=== PATIENT | female | born 1980 | race Hispanic/Latino ===

== ENCOUNTER → 2019-06-05 | Outpatient (REF) | payer OTHER | LOC: M LAB REF 14:46 | PROVIDERS: ATTEND Physician Assistant | DX: R50.9 Fever, unspecified (principal) ==

== ENCOUNTER → 2020-09-16 | Outpatient (CLI) | payer OTHER ==
[2020-09-16 13:36] LABS: BASO % 0.4 % (0.0-1.0); EOS # 0.1 10^3/uL (0.0-0.5); EOS % 1.8 % (0.0-3.0); HEMATOCRIT 40.6 % (36.0-47.0); HEMOGLOBIN 13.4 g/dl (12.0-15.5); LYMPH # 1.6 10^3/uL (1.5-5.0); LYMPH % 31.3 % (24.0-44.0); MEAN CORPUSCULAR HEMOGLOBIN 29.4 pg (27.0-33.0); MONO # 0.4 10^3/uL (0.0-0.8); MONO % 7.4 % (2.0-8.0); NEUTROPHILS # 2.9 10^3/uL (1.5-8.5); NEUTROPHILS % 58.9 % (36.0-66.0); PLATELET COUNT, AUTOMATED 300 10^3/uL (150-450); RED BLOOD COUNT 4.56 10^6/uL (4.00-5.40)
[2020-09-16 16:03] LABS: ALT/SGPT 17 U/L (12-78); BILIRUBIN,TOTAL 0.6 MG/DL (0.2-1.0); BLOOD UREA NITROGEN 7 MG/DL (7-18); CALCIUM LEVEL 8.9 MG/DL (8.5-10.1); CARBON DIOXIDE LEVEL 27 MEQ/L (21-32); CHLORIDE LEVEL 107 MEQ/L (98-107); CHOLESTEROL LEVEL 158 MG/DL (<200); CREATININE FOR GFR 0.62 MG/DL (0.55-1.30); FERRITIN 12 NG/ML (8-252); FREE T4 1.01 NG/DL (0.76-1.46); GLOMERULAR FILTRATION RATE > 60.0 (>60); GLUCOSE, FASTING 81 MG/DL (70-100); HDL CHOLESTEROL 61 MG/DL (>40); IRON (FE) 38 UG/DL (50-170); LDL CHOLESTEROL 83 MG/DL (<100); NON-HDL-C 97 MG/DL; PERCENT SATURATION 8.8 % (13.2-45.0); POTASSIUM SERUM 3.9 MEQ/L (3.5-5.1); SODIUM LEVEL 139 MEQ/L (136-145); THYROID STIMULATING HORMONE 0.965 uIU/ML (0.358-3.740); TOTAL IRON BINDING CAPACITY 432 UG/DL (250-450); TOTAL PROTEIN 7.4 GM/DL (6.4-8.2); TRIGLYCERIDES LEVEL 69 MG/DL (<150)
[2020-09-16 20:07] LABS: FOLATE > 24.0 NG/ML; VITAMIN B12 LEVEL 785 PG/ML
== END ==
LOC: M LAB 12:55
PROVIDERS: ATTEND Physician Assistant
DX: Z13.29 Encounter for screening for other suspected endocrine disorder (principal); Z13.220 Encounter for screening for lipoid disorders

== ENCOUNTER → 2021-02-03 | Outpatient (REF) | payer OTHER | LOC: M LAB REF 17:10 | PROVIDERS: ATTEND Physician Assistant | DX: N39.0 Urinary tract infection, site not specified (principal) ==

== ENCOUNTER → 2021-03-21 | Outpatient (CLI) | payer OTHER ==
--- NOTE | 2021-03-21 19:27 | REP ---
INDICATION: ENCOUNTER FOR SCREENING FOR RESPIRATORY TUBERCULOSIS-LAB 1ST COMPARISON: None. TECHNIQUE: PA and lateral. FINDINGS: The mediastinum and cardiac silhouette are normal. The lung trotter are clear and without acute consolidation, effusion, or pneumothorax. The skeletal structures are intact and normal. IMPRESSION: No acute cardiopulmonary process. <Electronically signed by Surendra Howard > 03/21/21 1926
== END ==
LOC: M LAB 16:44
PROVIDERS: ATTEND Internal Medicine
DX: Z11.1 Encounter for screening for respiratory tuberculosis (principal)

== ENCOUNTER → 2021-08-11 | Outpatient (CLI) | payer OTHER ==
[2021-08-11 13:26] LABS: HEMATOCRIT 40.9 % (36.0-47.0); HEMOGLOBIN 13.8 g/dl (12.0-15.5); MEAN CORPUSCULAR HEMOGLOBIN 29.4 pg (27.0-33.0); MEAN CORPUSCULAR HGB CONC 33.7 g/dl (32.0-36.5); PLATELET COUNT, AUTOMATED 247 10^3/uL (150-450); WHITE BLOOD COUNT 7.2 10^3/uL (4.0-10.0)
== END ==
LOC: M PLALAB 11:12
PROVIDERS: ATTEND Advanced Practice Midwife
DX: O02.1 Missed abortion (principal)
CPT/HCPCS: 36415; 85027; 86850; 86900; 86901; G0463

== ENCOUNTER → 2021-08-12 | Outpatient (CLI) | payer OTHER | LOC: M LABSMTC 10:44 | PROVIDERS: ATTEND Anesthesiology | DX: Z01.812 Encounter for preprocedural laboratory examination (principal); Z20.822 Contact with and (suspected) exposure to COVID-19 ==

== ENCOUNTER → 2021-08-22 | Outpatient (CLI) | payer OTHER | LOC: M PLALAB 09:13 | PROVIDERS: ATTEND Advanced Practice Midwife | DX: O02.1 Missed abortion (principal) ==

== ENCOUNTER → 2021-09-01 | Outpatient (CLI) | payer OTHER | LOC: M PLALAB 10:35 | PROVIDERS: ATTEND Advanced Practice Midwife | DX: O03.9 Complete or unspecified spontaneous abortion without complication (principal) ==

== ENCOUNTER → 2021-10-06 | Outpatient (CLI) | payer OTHER ==
[2021-10-06 13:42] LABS: BASO % 0.6 % (0.0-1.0); EOS # 0.1 10^3/uL (0.0-0.5); EOS % 2.5 % (0.0-3.0); HEMATOCRIT 39.6 % (36.0-47.0); HEMOGLOBIN 12.9 g/dl (12.0-15.5); LYMPH # 1.1 10^3/uL (1.5-5.0); MEAN CORPUSCULAR HEMOGLOBIN 28.7 pg (27.0-33.0); MEAN CORPUSCULAR HGB CONC 32.6 g/dl (32.0-36.5); MEAN CORPUSCULAR VOLUME 88.2 fl (80.0-96.0); MONO # 0.6 10^3/uL (0.0-0.8); MONO % 12.8 % (2.0-8.0); NEUTROPHILS % 61.7 % (36.0-66.0); PLATELET COUNT, AUTOMATED 255 10^3/uL (150-450); RED BLOOD COUNT 4.49 10^6/uL (4.00-5.40); WHITE BLOOD COUNT 4.9 10^3/uL (4.0-10.0)
[2021-10-06 14:37] LABS: ALBUMIN 3.8 GM/DL (3.2-5.2); ALT/SGPT 24 U/L (12-78); BILIRUBIN,TOTAL 0.5 MG/DL (0.2-1.0); BLOOD UREA NITROGEN 10 MG/DL (7-18); CARBON DIOXIDE LEVEL 26 MEQ/L (21-32); CHLORIDE LEVEL 108 MEQ/L (98-107); CREATININE FOR GFR 0.53 MG/DL (0.55-1.30); FERRITIN 11 NG/ML (8-252); FREE T4 0.91 NG/DL (0.76-1.46); GLOMERULAR FILTRATION RATE > 60.0 (>58); GLUCOSE, FASTING 86 MG/DL (70-100); IRON (FE) 61 UG/DL (50-170); PERCENT SATURATION 14.4 % (13.2-45.0); POTASSIUM SERUM 4.4 MEQ/L (3.5-5.1); SODIUM LEVEL 140 MEQ/L (136-145); TOTAL 25(OH) VITAMIN D 12.6 NG/ML (30.0-100.0); TOTAL IRON BINDING CAPACITY 423 UG/DL (250-450); TOTAL PROTEIN 7.2 GM/DL (6.4-8.2)
== END ==
LOC: M PLALAB 09:32
PROVIDERS: ATTEND Physician Assistant
DX: Z13.29 Encounter for screening for other suspected endocrine disorder (principal)

== ENCOUNTER → 2021-10-25 | Outpatient (CLI) | payer OTHER | LOC: M RAD 15:07 | PROVIDERS: ATTEND Physician Assistant | DX: M25.512 Pain in left shoulder (principal) ==

== ENCOUNTER → 2021-11-30 | Outpatient (CLI) | payer OTHER | LOC: M WHC 10-25 08:54 | PROVIDERS: ATTEND Physician Assistant | DX: Z12.31 Encounter for screening mammogram for malignant neoplasm of breast (principal); N63.12 Unspecified lump in the right breast, upper inner quadrant ==

== ENCOUNTER → 2021-12-15 | Outpatient (CLI) | payer OTHER | LOC: M WHC 13:51 | PROVIDERS: ATTEND Physician Assistant | DX: R92.2 Inconclusive mammogram (principal); N63.41 Unspecified lump in right breast, subareolar | CPT/HCPCS: 76642; 77065; G0279 ==